=== PATIENT | female | born 1955 | race Caucasian/White ===

== ENCOUNTER 2016-08-14 13:29 | Emergency (ER) | payer OTHER ==
[~2016-08-14] VITALS: Ht 175.3 cm; Wt 85.6 kg
[~2016-08-14 13:29] MED LIST: MELA5CAP2 PO; PRIL20CA PO
[2016-08-14 13:35] VITALS: BP 136/78; PULSE 86; RESP 20; TEMP 98.3; O2SAT 95
[2016-08-14] MEDS ORDERED: VENTAER INH (13:53)
[2016-08-14] MEDS ORDERED: PRED20 PO (13:54)
--- NOTE | 2016-08-14 13:59 | PD ---
HPI Chief Complaint: Respiratory Symptoms Time Seen by Provider: 13:43 Travel History International Travel<30 days: No Contact w/Intl Traveler<30days: No Traveled to known affect area: No History of Present Illness HPI The patient was seen and examined in the presence of the nurse. This patient complains of wheezing and congestion and cough. She has clear runny nose. No fever. No chest pain. Symptoms severity is mild to moderate PFSH Past Medical History Cancer: Yes (BASAL CELL) Cardiovascular Problems: No Diabetes: No Endocrine: No Genitourinary: No Hepatitis: Yes (C) Hiatal Hernia: No Immune Disorder: No Musculoskeletal: Yes (BACKACHE) Neurologic: No Psychiatric: No Reproductive: No Respiratory: Yes Thyroid Disease: No Past Surgical History Abdominal Surgery: Yes (TUBULAGATION) AICD: No Joint Replacement: No Pacemaker: No Social History Alcohol Use: No Tobacco Use: No Substance Use: No Allergies-Medications (Allergen,Severity, Reaction): Coded Allergies: Codeine (Verified Allergy, Unknown, 07/25/16) Reported Meds & Prescriptions Reported Meds & Active Scripts Active Prednisone 20 Mg Tab 20 Mg PO DAILY Ventolin Hfa 18 GM Inh (Albuterol Sulfate) 90 Mcg/Act Aer 1 Puff INH Q4H PRN Reported Melatonin 5 Mg Cap 5 Mg PO DAILY Prilosec 20 mg (Omeprazole) 20 Mg Cap 20 Mg PO BEFORE MEALS Review of Systems General / Constitutional: No: Fever HENT: No: Headaches Respiratory: Positive: Cough Physical Exam Narrative RESPIRATORY: Respiratory effort unlabored, no retractions or use of accessory muscles. Breath sounds show expiratory wheezing diffusely SKIN: Inspection shows no rash or ulcers. Palpation shows no induration or nodules. NECK: Symmetrical appearance, midline trachea. No mass or crepitus. Thyroid without enlargement, tenderness, or mass. Throat clear Data Data Last Documented VS Vital Signs Date Time Temp Pulse Resp B/P Pulse Ox O2 Delivery O2 Flow Rate FiO2 08/14/16 13:35 98.3 86 20 136/78 95 Orders Albuterol-Ipratropium Neb (Duoneb Neb) (08/14/16 14:00) [facility] Medical Decision Making Medical Screen Exam Complete: Yes Emergency Medical Condition: Yes Medical Record Reviewed: Yes Differential Diagnosis Bronchitis, pneumonia, URI Narrative Course I have reviewed the patient's electronic medical record. Presentation seems most consistent with an acute viral bronchitis with some bronchospasm She received 2 nebulizer treatments I prescribed an albuterol inhaler and 5 days of prednisone Diagnosis Primary Impression: Acute viral bronchitis Additional Instructions: The patient was advised to follow up with their physician and return if they worsen. Med/Other Pt SpecificInfo: Prescription(s) given Scripts Prednisone 20 Mg Tab20 Mg PO DAILY #5 TAB Ref 0 Prov:Dominic Shoemaker MD 08/14/16 Albuterol 18 GM Inh (Ventolin Hfa 18 GM Inh)90 Mcg/Act Aer1 Puff INH Q4H PRN ( SHORTNESS OF BREATH) #1 INHALER Ref 0 Prov:Dominic Shoemaker MD 08/14/16 Disposition: 01 DISCHARGE HOME Condition: Stable Dominic Shoemaker MD Aug 14, 2016 13:59
[2016-08-14] MEDS ORDERED: RESP: ALBUTEROL 2.5 MG/IPRATROPIUM 0.5 MG NEB (SCH) NEB ONE (14:00)
[2016-08-14] MEDS ORDERED: LACTCAP8 PO (14:03)
[2016-08-14] MEDS ORDERED: MELA1TAB18 PO (14:03)
== END 2016-08-14 14:28 | disposition home or self-care (01) ==
LOC: PHED 13:29
DX: J20.8 Acute bronchitis due to other specified organisms (principal)
CPT/HCPCS: 94664; 99283

== ENCOUNTER 2016-09-07 17:02 | Emergency (ER) | payer OTHER ==
[~2016-09-07] VITALS: Ht 175.3 cm; Wt 90.0 kg
[~2016-09-07 17:02] MED LIST changes: +LACTCAP8 PO; +MELA1TAB18 PO; -MELA5CAP2 PO; +PRED20 PO; -PRIL20CA PO; +VENTAER INH
[2016-09-07 17:09] VITALS: BP_SYST 166; BP_SYST 190; BP_DIAS 100; BP_DIAS 88; PULSE 94; RESP 26; TEMP 97.7; O2SAT 94
--- NOTE | 2016-09-07 17:25 | PD ---
HPI Chief Complaint: Respiratory Distress Time Seen by Provider: 17:16 Travel History International Travel<30 days: No Contact w/Intl Traveler<30days: No Traveled to known affect area: No History of Present Illness HPI 61-year-old female complains of shortness of breath coughing and wheezing. Patient states that symptoms started last night and got worse today. Patient was exposed to a lot of dust since yesterday. Patient has history of asthma. Patient has albuterol inhaler at home. Patient denies any fever chills. Patient denies any chest pain. Patient states that the cough is intermittent with brown mucus sputum. PFSH Past Medical History Cancer: Yes (BASAL CELL) Cardiovascular Problems: No Diabetes: No Diminished Hearing: No Endocrine: No Gastrointestinal Disorders: Yes Genitourinary: No Hepatitis: Yes (C) Hiatal Hernia: No Immune Disorder: No Musculoskeletal: Yes (BACKACHE) Neurologic: No Psychiatric: No Reproductive: No Respiratory: Yes (asthma) Immunizations Current: Yes Thyroid Disease: No Tetanus Vaccination: Unknown Menopausal: Yes Tubal Ligation: Yes Past Surgical History Abdominal Surgery: Yes (TUBULAGATION) AICD: No Joint Replacement: No Pacemaker: No Other Surgery: Yes Social History Alcohol Use: No Tobacco Use: No Substance Use: No Allergies-Medications (Allergen,Severity, Reaction): Coded Allergies: Codeine (Verified Allergy, Unknown, 08/25/16) Reported Meds & Prescriptions Reported Meds & Active Scripts Active Zithromax Z-Mikel (Azithromycin) 250 Mg Dspk 250 Mg PO DIRECTED 500 MG (2 tabs) day 1, then 1 tab days 2-5. Prednisone 20 Mg Tab 20 Mg PO BID Symbicort Inh (Budesonide/Formoterol Fumarate) 160-4.5 Mcg/Act Aero 1 Puff INH Q12HR Proair Hfa 8.5 GM Inh (Albuterol Sulfate) 90 Mcg/Act Aer 2 Puff INH Q4-6H PRN 108 mcg/actuation Prednisone 20 Mg Tab 20 Mg PO DAILY Ventolin Hfa 18 GM Inh (Albuterol Sulfate) 90 Mcg/Act Aer 1 Puff INH Q4H PRN Reported Probiotic (Lactobacillus Acidophilus) 1 Cap Cap 1 Cap PO DAILY Melatonin 10 Mg Tab 10 Mg PO HS PRN Review of Systems General / Constitutional: No: Fever Eyes: No: Visual changes HENT: No: Headaches Cardiovascular: No: Chest Pain or Discomfort Respiratory: Positive: Cough, Shortness of Breath, Wheezing Gastrointestinal: No: Abdominal Pain Genitourinary: No: Dysuria Musculoskeletal: No: Pain Skin: No Rash Neurologic: No: Weakness Psychiatric: No: Depression Endocrine: No: Polydipsia Hematologic/Lymphatic: No: Easy Bruising Physical Exam Narrative GENERAL: Well-nourished, well-developed patient. SKIN: Warm and dry. HEAD: Normocephalic. EYES: No scleral icterus. No injection or drainage. NECK: Supple, trachea midline. No JVD or lymphadenopathy. CARDIOVASCULAR: Regular rate and rhythm without murmurs, gallops, or rubs. RESPIRATORY: Breath sounds equal bilaterally. No accessory muscle use. Patient has moderate expiratory wheezes bilaterally. Few rhonchi at the bases. GASTROINTESTINAL: Abdomen soft, non-tender, nondistended. MUSCULOSKELETAL: No cyanosis, or edema. BACK: Nontender without obvious deformity. No CVA tenderness. Neurologic exam normal. Data Data Last Documented VS Vital Signs Date Time Temp Pulse Resp B/P Pulse Ox O2 Delivery O2 Flow Rate FiO2 09/07/16 18:09 98 Room Air 09/07/16 17:14 94 26 09/07/16 17:09 97.7 166/88 Orders Electrocardiogram (09/07/16 17:22) Ecg Monitoring (09/07/16 17:22) Oximetry (09/07/16 17:22) Chest, Single Ap (09/07/16 17:22) Albuterol-Ipratropium Neb (Duoneb Neb) (09/07/16 17:30) Dexamethasone Inj (Decadron Inj) (09/07/16 17:30) Lorazepam Inj (Ativan Inj) (09/07/16 17:45) Resp Mdi / Spacer Instruction (09/07/16 17:47) Lorazepam (Ativan) (09/07/16 18:00) MDM Medical Decision Making Medical Screen Exam Complete: Yes Emergency Medical Condition: Yes Interpretation(s) Last Impressions Chest X-Ray 09/07/16 7422 Signed Impressions: Service Date/Time: August 17:33 - CONCLUSION: Normal examination. Karissa Hunter MD Differential Diagnosis Differential diagnosis including acute exacerbation of asthma, bronchitis, pneumonia. Narrative Course 61-year-old female with coughing wheezing and shortness of breath. History of asthma. Albuterol Atrovent unit dose treatment 3. Decadron 8 mg IM. 1816 p.m. Reexamination, patient feel much better. Mild expiratory wheezes bilaterally. Diagnosis Primary Impression: Acute asthma exacerbation Qualified Code: J45.41 - Moderate persistent asthma with acute exacerbation Patient Instructions: General Instructions Additional Instructions: Take medications as directed. Follow-up with personal physician. Return if persistent problem or worse. Med/Other Pt SpecificInfo: Prescription(s) given Scripts Azithromycin (Zithromax Z-Mikel)250 Mg [id number] Mg PO DIRECTED #1 DSPK Ref 0 500 MG (2 tabs) day 1, then 1 tab days 2-5. Prov:Andre Jacobson MD 09/07/16 Prednisone 20 Mg Tab20 Mg PO BID #10 TAB Ref 0 Prov:Andre Jacobson MD 09/07/16 Budesonide-Formoterol Inh (Symbicort Inh)160-4.5 Mcg/Act Aero1 Puff INH Q12HR # 1 INHALER Ref 0 Prov:Andre Jacobson MD 09/07/16 Albuterol 8.5 GM Inh (Proair Hfa 8.5 GM Inh)90 Mcg/Act Aer2 Puff INH Q4-6H PRN ( SHORTNESS OF BREATH) #1 INHALER 108 mcg/actuation Prov:Andre Jacobson MD 09/07/16 Disposition: 01 DISCHARGE HOME Condition: Stable Andre Jacobson MD Sep 07, 2016 17:25
[2016-09-07] MEDS ORDERED: DEXAMETHASONE SOD PHOS 4 MG/ML VIAL IM ONE (17:30)
[2016-09-07] MEDS: RESP: ALBUTEROL 2.5 MG/IPRATROPIUM 0.5 MG NEB (SCH) INH ×2 (17:34→17:35)
--- NOTE | 2016-09-07 17:38 | RADHPO ---
EXAM DATE/TIME: 09/07/2016 17:33 [facility] COMPARISON: No previous studies available for comparison. INDICATIONS : Patient states cough. MEDICAL HISTORY : None. SURGICAL HISTORY : None. ENCOUNTER: Initial ACUITY: 1 day PAIN SCORE: 0/10 LOCATION: Left chest FINDINGS: A single view of the chest demonstrates the lungs to be symmetrically aerated without evidence of mas s, infiltrate or effusion. The cardiomediastinal contours are unremarkable. Osseous structures are intact. CONCLUSION: Normal examination. Karissa Hunter MD on September 07, 2016 at 17:36 Board Certified Radiologist. This report was verified electronically.
[2016-09-07] MEDS ORDERED: LORazepam 2 MG/ML VIAL IV PUSH ONE (17:45)
[2016-09-07] MEDS ORDERED: LORazepam 0.5 MG TAB PO ONE (18:00)
[2016-09-07] MEDS ORDERED: ZITHTAB PO (18:02)
[2016-09-07] MEDS ORDERED: ALBUAER3 INH (18:02)
[2016-09-07] MEDS ORDERED: SYMB160A INH (18:02)
[2016-09-07] MEDS ORDERED: PRED20 PO (18:02)
[2016-09-07 18:09] VITALS: O2SAT 98
[2016-09-07 18:38] VITALS: BP 156/74; PULSE 88; RESP 16; O2SAT 99
[2016-09-07 19:17] VITALS: BP 166/83; PULSE 99; RESP 20; O2SAT 94
[2016-09-07] MEDS ORDERED: RESP: ALBUTEROL 2.5 MG/IPRATROPIUM 0.5 MG NEB (SCH) INH ONE (19:30)
[2016-09-07 19:56] VITALS: BP 166/83
--- NOTE | 2016-09-08 16:37 | EKG ---
Date Performed: 09/07/2016 Time Performed: 17:12:56 PTAGE: 61 years EKG: Sinus rhythm . Septal T wave changes are nonspecific Borderline ECG NO PREVIOUS TRACING DOCTOR: Gaurav Jennings Interpretating Date/Time 09/08/2016 16:35:41
== END 2016-09-07 19:59 | disposition home or self-care (01) ==
LOC: PHED 17:02
DX: J45.901 Unspecified asthma with (acute) exacerbation (principal)
CPT/HCPCS: 71010; 93005; 94640; 94664; 96372; 99285; J1100

== ENCOUNTER 2017-01-14 22:32 | Emergency (ER) | payer OTHER ==
[~2017-01-14] VITALS: Ht 175.3 cm; Wt 96.0 kg
[~2017-01-14 22:32] MED LIST changes: +ALBUAER3 INH; +SYMB160A INH; +ZITHTAB PO
[2017-01-14 22:36] VITALS: BP 156/103; PULSE 97; RESP 22; TEMP 97.8; O2SAT 93
[2017-01-14] MEDS ORDERED: predniSONE 50 MG TAB PO ONE (22:45)
[2017-01-14] MEDS ORDERED: SODIUM CHLORIDE 0.9% FLUSH 10 ML FLUSH IVF PRN (22:45)
--- NOTE | 2017-01-14 22:48 | PD ---
HPI Chief Complaint: Respiratory Symptoms Time Seen by Provider: 22:41 Travel History International Travel<30 days: No Contact w/Intl Traveler<30days: No Traveled to known affect area: No History of Present Illness HPI 61-year-old female here for evaluation of shortness of breath. The patient had similar episode in August of this year and was told she may have asthma. Patient reports that she may been exposed to some dust yesterday, and since this time she has been gradually experiencing worsening shortness of breath as well as wheezing. Shortest breath is at rest, worse with exertion. She denies chest pain. No fevers or recent illness. No cough. No known history of cardiac disease. No history of DVT or PE. She smoked cigarettes for about 30 years and quit 10 years ago. PFSH Past Medical History Cancer: Yes (BASAL CELL) Cardiovascular Problems: No Diabetes: No Diminished Hearing: No Endocrine: No Gastrointestinal Disorders: Yes Genitourinary: No Hepatitis: Yes (C) Hiatal Hernia: No Immune Disorder: No Musculoskeletal: Yes (BACKACHE) Neurologic: No Psychiatric: No Reproductive: No Respiratory: Yes (asthma) Immunizations Current: Yes Thyroid Disease: No ?: Not Menopausal: Yes Tubal Ligation: Yes Past Surgical History Abdominal Surgery: Yes (TUBULAGATION) AICD: No Joint Replacement: No Pacemaker: No Other Surgery: Yes Social History Alcohol Use: No Tobacco Use: No Substance Use: No Allergies-Medications (Allergen,Severity, Reaction): Coded Allergies: Codeine (Verified Allergy, Unknown, 01/14/17) Reported Meds & Prescriptions Reported Meds & Active Scripts Active Ventolin Hfa 18 GM Inh (Albuterol Sulfate) 90 Mcg/Act Aer 1 Puff INH Q4H PRN Reported Omeprazole 20 Mg Tab 20 Mg PO DAILY Probiotic (Lactobacillus Acidophilus) 1 Cap Cap 1 Cap PO DAILY Melatonin 10 Mg Tab 10 Mg PO HS PRN Review of Systems Except as stated in HPI: all other systems reviewed are Neg Physical Exam Narrative GENERAL: Well-developed, well-nourished, moderate respiratory distress, accessory muscle use, speaking a few words at a time. SKIN: Focused skin assessment warm/dry. HEAD: Atraumatic. Normocephalic. EYES: Pupils equal and round. No scleral icterus. No injection or drainage. ENT: Mucous membranes pink and moist. NECK: Trachea midline. No JVD. CARDIOVASCULAR: Regular rate and rhythm. RESPIRATORY: Moderate respiratory distress, accessory muscle use, speaking a few words at a time, bilateral inspiratory and expiratory wheezes. GASTROINTESTINAL: Abdomen soft, non-tender, nondistended. MUSCULOSKELETAL: No obvious deformities. No clubbing. No cyanosis. No edema. NEUROLOGICAL: Awake and alert. No obvious cranial nerve deficits. Motor grossly within normal limits. Normal speech. PSYCHIATRIC: Appropriate mood and affect; insight and judgment normal. Data Data Last Documented VS Vital Signs Date Time Temp Pulse Resp B/P Pulse Ox O2 Delivery O2 Flow Rate FiO2 01/14/17 23:02 84 20 96 01/14/17 23:00 156/87 01/14/17 22:36 97.8 Orders Iv Access Insert/Monitor (01/14/17 22:44) Ecg Monitoring (01/14/17 22:44) Oximetry (01/14/17 22:44) Oxygen Administration (01/14/17 22:44) Chest, Single Ap (01/14/17 22:44) Sodium Chloride 0.9% Flush (Ns Flush) (01/14/17 22:45) Albuterol-Ipratropium Neb (Duoneb Neb) (01/14/17 22:45) Prednisone (Deltasone) (01/14/17 22:45) MDM Medical Decision Making Medical Screen Exam Complete: Yes Emergency Medical Condition: Yes Differential Diagnosis Reactive airway disease, COPD, pneumonia, pneumothorax, PE, ACS Narrative Course Initial vital signs show heart rate 97, blood pressure 156/103, pulse ox 93% on room air, oral temp of 97.8F. Chest x-ray shows no acute disease. Patient was given 3 DuoNeb treatments and oral prednisone with significant improvement in respiratory status. Wheezes have resolved. She is no longer using accessory muscles for breathing. She is feeling a lot better. She has an albuterol inhaler at home. I will give her prescription for prednisone 50 mg daily for the next 5 days. I will give her the name of the academic affairs specialist plant control aide with whom to follow-up with. She was also informed to follow up with her primary care physician this week. She was informed on when to return to the emergency department. She verbalizes understanding and agreement with plan. Diagnosis Primary Impression: Acute asthma exacerbation Qualified Code: J45.901 - Asthma with acute exacerbation, unspecified asthma severity Referrals: Bill Martinez MD 1 week Bus Repair Supervisor Primary Care Physician 3 days Additional Instructions: Follow-up with your primary care physician this week. Take medications as prescribed. Return to the emergency department for worsening symptoms or any other concerns. Scripts Prednisone 50 Mg Tab50 Mg PO DAILY 5 Days Ref 0 Prov:Bryant York MD 01/14/17 Disposition: 01 DISCHARGE HOME Condition: Stable Bryant York MD Jan 14, 2017 22:48
[2017-01-14] MEDS: RESP: ALBUTEROL 2.5 MG/IPRATROPIUM 0.5 MG NEB (SCH) INH ×3 (22:50→23:10)
[2017-01-14 22:57] VITALS: BP 156/87; PULSE 83; RESP 20; O2SAT 96
--- NOTE | 2017-01-14 22:57 | RADHPO ---
EXAM DATE/TIME: 01/14/2017 22:50 [facility] COMPARISON: CHEST SINGLE AP, September 07, 2016, 17:33. INDICATIONS : Shortness of breath. MEDICAL HISTORY : None. SURGICAL HISTORY : None. ENCOUNTER: Initial ACUITY: 1 day PAIN SCORE: 0/10 LOCATION: Bilateral chest FINDINGS: A single view of the chest demonstrates the lungs to be symmetrically aerated without evidence of mas s, infiltrate or effusion. The cardiomediastinal contours are unremarkable. Osseous structures are intact. CONCLUSION: No acute disease. Horace Kinsey MD on January 14, 2017 at 22:55 Board Certified Radiologist. This report was verified electronically.
[2017-01-14 23:00] VITALS: BP 156/87; PULSE 79; RESP 20; O2SAT 96
[2017-01-14] MEDS ORDERED: OMEP20TA PO (23:20)
[2017-01-14] MEDS ORDERED: PRED50 PO (23:47)
[2017-01-15 00:30] VITALS: BP 156/87
== END 2017-01-15 02:11 | disposition home or self-care (01) ==
LOC: PHED 22:32
DX: J45.901 Unspecified asthma with (acute) exacerbation (principal); Z87.19 Personal history of other diseases of the digestive system; Z87.39 Personal history of other diseases of the musculoskeletal system and connective tissue; Z87.09 Personal history of other diseases of the respiratory system; Z87.891 Personal history of nicotine dependence
CPT/HCPCS: 71010; 94640; 94664; 99284; J7512

== ENCOUNTER 2017-01-31 10:47 | Emergency (ER) | payer OTHER ==
[~2017-01-31] VITALS: Ht 175.3 cm; Wt 92.4 kg
[~2017-01-31 10:47] MED LIST changes: -ALBUAER3 INH; +OMEP20TA PO; -PRED20 PO; +PRED50 PO; -SYMB160A INH; -ZITHTAB PO
[2017-01-31 10:48] VITALS: BP 125/80; PULSE 72; RESP 24; TEMP 98.5; O2SAT 98
--- NOTE | 2017-01-31 11:12 | PD ---
HPI Chief Complaint: Respiratory Symptoms Time Seen by Provider: 11:01 Travel History International Travel<30 days: No Contact w/Intl Traveler<30days: No Traveled to known affect area: No History of Present Illness HPI This 61-year-old female is complaining of shortness of breath. She has had persistent cough. She says she was coughing most of the night last night. She has a history of asthma. She recently finished a course of prednisone. She does not smoke and is not around smokers PFS Past Medical History Asthma: Yes Cancer: Yes (BASAL CELL) Cardiovascular Problems: No Diabetes: No Diminished Hearing: No Endocrine: No Gastrointestinal Disorders: Yes (LIVER BIOPSY) Genitourinary: No Hepatitis: Yes (C) Hiatal Hernia: No Hypertension: Yes Immune Disorder: No Musculoskeletal: Yes (BACKACHE) Neurologic: No Psychiatric: No Reproductive: No Respiratory: Yes (asthma) Immunizations Current: Yes Thyroid Disease: No Tetanus Vaccination: > 5 Years Influenza Vaccination: No ?: Not Menopausal: Yes Tubal Ligation: Yes Past Surgical History Abdominal Surgery: Yes (TUBULAGATION) AICD: No Joint Replacement: No Pacemaker: No Other Surgery: Yes Social History Alcohol Use: Yes (SOCIALLY) Tobacco Use: Yes Substance Use: No Allergies-Medications (Allergen,Severity, Reaction): Coded Allergies: Codeine (Verified Allergy, Unknown, 01/31/17) Reported Meds & Prescriptions Reported Meds & Active Scripts Active Ventolin Hfa 18 GM Inh (Albuterol Sulfate) 90 Mcg/Act Aer 1 Puff INH Q4H PRN Reported Omeprazole 20 Mg Tab 20 Mg PO DAILY Probiotic (Lactobacillus Acidophilus) 1 Cap Cap 1 Cap PO DAILY Melatonin 10 Mg Tab 10 Mg PO HS PRN Review of Systems General / Constitutional: No: Fever, Chills Eyes: No: Diploplia HENT: No: Headaches, Vertigo Cardiovascular: No: Chest Pain or Discomfort Respiratory: Positive: Cough, Shortness of Breath, Wheezing Gastrointestinal: No: Vomiting, Diarrhea Genitourinary: No: Frequency Musculoskeletal: No: Myalgias Skin: No Rash, No Itching Endocrine: No: Heat Intolerance Hematologic/Lymphatic: No: Easy Bruising Physical Exam Narrative GENERAL: Well-developed female SKIN: Focused skin assessment warm/dry. HEAD: Atraumatic. Normocephalic. EYES: Pupils equal and round. No scleral icterus. No injection or drainage. ENT: No nasal bleeding or discharge. Mucous membranes pink and moist. NECK: Trachea midline. No JVD. CARDIOVASCULAR: Regular rate and rhythm. No murmur appreciated. RESPIRATORY: No accessory muscle use. There are scattered wheezes GASTROINTESTINAL: Abdomen soft, non-tender, nondistended. Hepatic and splenic margins not palpable. MUSCULOSKELETAL: No obvious deformities. No clubbing. No cyanosis. No edema. NEUROLOGICAL: Awake and alert. No obvious cranial nerve deficits. Motor grossly within normal limits. Normal speech. PSYCHIATRIC: Appropriate mood and affect; insight and judgment normal. Data Data Last Documented VS Vital Signs Date Time Temp Pulse Resp B/P Pulse Ox O2 Delivery O2 Flow Rate FiO2 01/31/17 11:02 72 96 Room Air 01/31/17 10:48 98.5 24 125/80 Orders Prednisone (Deltasone) (01/31/17 11:15) Albuterol-Ipratropium Neb (Duoneb Neb) (01/31/17 11:15) [facility] Medical Decision Making Medical Screen Exam Complete: Yes Emergency Medical Condition: Yes Medical Record Reviewed: Yes Differential Diagnosis Differential includes asthma exacerbation, URI Narrative Course Patient has been given prednisone and nebulizer treatment with improvement. She is stable for discharge Diagnosis Primary Impression: Acute asthma exacerbation Qualified Code: J45.41 - Moderate persistent asthma with acute exacerbation Scripts Prednisone (48) 10 mg tab Dose Pack 10 Mg Dspk10 Mg PO DIRECTED #1 DSPK Ref 0 Prov:Aidan Wilkerson MD 01/31/17 Disposition: 01 DISCHARGE HOME Condition: Stable Aidan Wilkerson MD Jan 31, 2017 11:12
[2017-01-31] MEDS ORDERED: predniSONE 20 MG TAB PO ONE (11:15)
[2017-01-31] MEDS ORDERED: RESP: ALBUTEROL 2.5 MG/IPRATROPIUM 0.5 MG NEB (SCH) NEB ONE (11:15)
[2017-01-31] MEDS ORDERED: PRED10PA2 PO (11:32)
[2017-01-31] MEDS ORDERED: PRED20 PO (11:36)
[2017-01-31] MEDS ORDERED: NEBUMIS25 (11:43)
[2017-01-31] MEDS ORDERED: ALBU0.08 NEB (11:44)
[2017-01-31 11:45] VITALS: BP 100/65; PULSE 75; RESP 16; O2SAT 94
== END 2017-01-31 11:59 | disposition home or self-care (01) ==
LOC: PHED 10:47
DX: J45.41 Moderate persistent asthma with (acute) exacerbation (principal); B19.20 Unspecified viral hepatitis C without hepatic coma; I10 Essential (primary) hypertension; Z72.0 Tobacco use
CPT/HCPCS: 94640; 94664; 99284; J7512

== ENCOUNTER → 2017-05-07 | Outpatient (CLI) | payer OTHER ==
[~2017-05-07] MED LIST changes: +ALBU0.08 NEB; +NEBUMIS25; +PRED10PA2 PO; +PRED20 PO; -PRED50 PO
--- NOTE | 2017-05-08 09:10 | RSPPFT ---
DATE OF PROCEDURE: 05/07/17 COMMENTS: Spirometry shows FVC of 2.5 at 71% of predicted, FEV1 of 1.66 at 58%, FEV1/FVC ratio is decreased. Flow is decreased at FEF 25, FEF 50. FEF 75, and FEF 25-75. There is a good response after bronchodilator treatment. Lung volumes show residual volume is increased. TLC is increased. Diffusion capacity is decreased. Flow volume loops indicate an obstructive pattern. IMPRESSION: 1. Moderately severe obstructive lung disease. 2. Good response after bronchodilator treatment. 3. Lung volumes show hyperinflation. 4. Mild decrease in diffusion capacity.
== END ==
LOC: PHRSP 07:38
PROVIDERS: ATTEND Specialist
DX: J45.20 Mild intermittent asthma, uncomplicated (principal)
CPT/HCPCS: 94060; 94726; 94729

== ENCOUNTER 2017-07-13 12:08 | Emergency (ER) | payer OTHER ==
[~2017-07-13] VITALS: Ht 175.3 cm; Wt 95.2 kg
[~2017-07-13 12:08] MED LIST changes: -OMEP20TA PO; +OMEP20TA93 PO
[2017-07-13 12:31] VITALS: BP 115/79; PULSE 72; RESP 16; TEMP 98; O2SAT 97
--- NOTE | 2017-07-13 15:07 | RADRPT ---
EXAM DATE/TIME: 07/13/2017 14:30 [facility] COMPARISON: No previous studies available for comparison. INDICATIONS : Fell and hit head 1 week ago. Cephalgia. RADIATION DOSE: 65.62 CTDIvol (mGy) MEDICAL HISTORY : Hypertension. SURGICAL HISTORY : Tubal ligation. ENCOUNTER: Initial ACUITY: 1 week PAIN SCALE: 3/10 LOCATION: cranial TECHNIQUE: Multiple contiguous axial images were obtained of the head. Using automated exposure control and adj ustment of the mA and/or kV according to patient size, radiation dose was kept as low as reasonably a chievable to obtain optimal diagnostic quality images. DICOM format image data is available electro nically for review and comparison. FINDINGS: CEREBRUM: The ventricles are normal for age. No evidence of midline shift, mass lesion, hemorrhage or acute in farction. No extra-axial fluid collections are seen. POSTERIOR FOSSA: The cerebellum and brainstem are intact. The 4th ventricle is midline. The cerebellopontine angle i s unremarkable. EXTRACRANIAL: The visualized portion of the orbits is intact. SKULL: The calvaria is intact. No evidence of skull fracture. CONCLUSION: Normal examination. Ronnell Vitale Jr., MD on July 13, 2017 at 15:04 Board Certified Radiologist. This report was verified electronically.
--- NOTE | 2017-07-13 15:23 | PD ---
HPI Chief Complaint: Head Injury Time Seen by Provider: 13:44 Travel History International Travel<30 days: No Contact w/Intl Traveler<30days: No Traveled to known affect area: No History of Present Illness HPI 62-year-old female here with mild headache after head injury one week ago. Patient reports that she tripped while coming out of a store falling to the concrete hitting her head. There was no loss of consciousness. She is not anticoagulated. She has not had any vomiting. She reports a mild posterior headache and has had some mild confusion since the event. She reports to putting things away in the cabinets that belonged in the fridge, forgetting things that she would normally remember, and feeling generally fatigued. She denies fever, chills, visual changes, neck pain, chest pain, shortness breath, abdominal pain, paresthesia or weakness in the extremities. Some severity is mild. PFSH Past Medical History Asthma: Yes Cancer: Yes (BASAL CELL) Cardiovascular Problems: No Diabetes: No Diminished Hearing: No Endocrine: No Gastrointestinal Disorders: Yes (LIVER BIOPSY) Genitourinary: No Hepatitis: Yes (C) Hiatal Hernia: No Hypertension: Yes Immune Disorder: No Musculoskeletal: Yes (BACKACHE) Neurologic: No Psychiatric: No Reproductive: No Respiratory: Yes (asthma) Immunizations Current: Yes Thyroid Disease: No Tetanus Vaccination: > 5 Years Influenza Vaccination: No ?: Not Menopausal: Yes Tubal Ligation: Yes Past Surgical History Abdominal Surgery: Yes (TUBULAGATION) AICD: No Joint Replacement: No Pacemaker: No Other Surgery: Yes Social History Alcohol Use: Yes (SOCIALLY) Tobacco Use: No Substance Use: No Allergies-Medications (Allergen,Severity, Reaction): Coded Allergies: codeine (Unverified Allergy, Unknown, 07/13/17) Reported Meds & Prescriptions Reported Meds & Active Scripts Active Albuterol Neb (Albuterol Sulfate) 2.5 Mg/3 Ml Neb 2.5 Mg NEB Q4HR NEB PRN Easy Air Compressor Nebulizer 1 Mis Mis 1 Ea .ROUTE DIRECTED Ventolin Hfa 18 GM Inh (Albuterol Sulfate) 90 Mcg/Act Aer 1 Puff INH Q4H PRN Reported Omeprazole 20 Mg Tab 20 Mg PO DAILY Probiotic (Lactobacillus Acidophilus) 1 Cap Cap 1 Cap PO DAILY Melatonin 10 Mg Tab 10 Mg PO HS PRN Review of Systems Except as stated in HPI: all other systems reviewed are Neg Physical Exam Narrative GENERAL: Well-appearing female in no distress. SKIN: Warm and dry. HEAD: Normocephalic. Atraumatic EYES: No scleral icterus. No injection or drainage. EOMs intact NECK: Supple, trachea midline. No Cervical midline tenderness CARDIOVASCULAR: Regular rate and rhythm without murmurs, gallops, or rubs. RESPIRATORY: Breath sounds equal bilaterally. No accessory muscle use. GASTROINTESTINAL: Abdomen soft, non-tender, nondistended. MUSCULOSKELETAL: No cyanosis, or edema. Normal strength and sensation in the extremities. BACK: Nontender without obvious deformity. No CVA tenderness. Data Data Last Documented VS Vital Signs Date Time Temp Pulse Resp B/P (MAP) Pulse Ox O2 Delivery O2 Flow Rate FiO2 07/13/17 13:11 Room Air 07/13/17 12:31 98.0 72 16 115/79 (91) [address] Brain W/O Iv Contrast(Rout) (07/13/17 ) [facility] Medical Decision Making Medical Screen Exam Complete: Yes Emergency Medical Condition: Yes Differential Diagnosis Concussion, scalp contusion, ICH Narrative Course 62-year-old female with headache after head injury last week. She has a normal neurologic exam. CT of the brain was negative. Patient has postconcussive type symptoms. This was discussed with patient. She agrees to follow up with primary doctor. Diagnosis Primary Impression: Head injury Qualified Codes: S09.90XA - Unspecified injury of head, initial encounter Referrals: Primary Care Physician Additional Instructions: Follow-up with her primary doctor. To the [id number] Tylenol as needed for pain. Return to the emergency department if he developed new or worsening symptoms. Disposition: 01 DISCHARGE HOME Condition: Stable FuentesamberMini BEASLEY Jul 13, 2017 15:23
== END 2017-07-13 15:37 | disposition home or self-care (01) ==
LOC: PHEFT 12:08
DX: S09.90XA Unspecified injury of head, initial encounter (principal); R41.0 Disorientation, unspecified; R53.83 Other fatigue; I10 Essential (primary) hypertension; W01.0XXA Fall on same level from slipping, tripping and stumbling without subsequent striking against object, initial encounter; Y92.512 Supermarket, store or market as the place of occurrence of the external cause; Z87.09 Personal history of other diseases of the respiratory system; Z87.19 Personal history of other diseases of the digestive system; Z86.19 Personal history of other infectious and parasitic diseases; Z87.39 Personal history of other diseases of the musculoskeletal system and connective tissue; Z85.828 Personal history of other malignant neoplasm of skin
CPT/HCPCS: 70450